=== PATIENT | female | born 1955 | race Caucasian/White ===

== ENCOUNTER → 2021-10-18 | Outpatient (CLI) | payer OTHER ==
--- NOTE | 2021-10-18 10:38 | KCIC ---
EXAM: CT coronary artery calcium screening; radiologist over read. HISTORY: Mixed hyperlipidemia. TECHNIQUE: Computed tomographic images of the chest were obtained without contrast. Multiplanar refor matting was performed. *One or more of the following individualized dose reduction techniques were utilized for this examina tion: 1. Automated exposure control. 2. Adjustment of the mA and/or kV according to patient size. 3. Use of iterative reconstruction technique. COMPARISON: None. FINDINGS: The heart is normal in size. The visualized aorta is normal in caliber. There is calcified atherosclerotic plaque involving the coronary arteries. There is no lymphadenopathy. There is no infi ltrate, pleural effusion or pneumothorax. There is no suspicious pulmonary nodule. There is no acute finding involving the osseous structures or upper abdomen. Coronary artery calcium score: Left main artery - 0 Left anterior descending - 0 Left circumflex - 93.1 Right coronary artery - 0 Posterior descending artery - 0 TOTAL = 93.1 IMPRESSION: 1. Coronary artery calcium score of 93.1. There is moderate cardiac risk. 2. No significant incidental thoracic finding. Electronically signed by: Yazmin Abbasi MD (10/18/2021 10:36 AM) [id number]
== END ==
LOC: KCIC CT 10:02
PROVIDERS: ATTEND Family Medicine
DX: I25.10 Atherosclerotic heart disease of native coronary artery without angina pectoris (principal); E78.2 Mixed hyperlipidemia
CPT/HCPCS: 75571